=== PATIENT | male | born 1990 | race Native Hawaiian/Other Pacific Islander ===

== ENCOUNTER → 2019-10-10 14:47 | Outpatient (CLI) | payer OTHER | END | disposition short-term general hospital (02) | LOC: AMB 14:47 | DX: R51 Headache (principal); R55 Syncope and collapse; M79.604 Pain in right leg; S09.90XA Unspecified injury of head, initial encounter; S72.91XA Unspecified fracture of right femur, initial encounter for closed fracture; V49.40XA Driver injured in collision with unspecified motor vehicles in traffic accident, initial encounter; Y92.410 Unspecified street and highway as the place of occurrence of the external cause | CPT/HCPCS: A0427 ==

== ENCOUNTER 2020-11-16 16:05 | Outpatient (CLI) | payer OTHER | END 2020-11-16 20:35 | disposition home or self-care (01) | LOC: INF 16:05 | PROVIDERS: ATTEND Internal Medicine | DX: Z23 Encounter for immunization (principal) ==

== ENCOUNTER 2020-12-08 16:05 | Outpatient (CLI) | payer OTHER | END 2020-12-08 20:42 | disposition home or self-care (01) | LOC: INF 16:05 | PROVIDERS: ATTEND Internal Medicine | DX: Z23 Encounter for immunization (principal) | CPT/HCPCS: 96372 ==

== ENCOUNTER 2020-12-20 10:34 | Outpatient (CLI) | payer OTHER | END 2020-12-20 21:59 | disposition home or self-care (01) | LOC: LAB 10:34 | PROVIDERS: ATTEND Internal Medicine | DX: Z02.1 Encounter for pre-employment examination (principal) | CPT/HCPCS: 87635; G2023; U0003 ==

== ENCOUNTER 2023-09-24 13:07 | Outpatient (CLI) | payer OTHER | END 2023-09-24 19:09 | disposition home or self-care (01) | LOC: CT 13:07 | PROVIDERS: ATTEND General Practice | DX: R51.9 Headache, unspecified (principal) ==